=== PATIENT | male | born 1945 | race Caucasian/White ===

== ENCOUNTER 2017-11-05 14:52 | Outpatient (CLI) | payer MEDICARE ==
--- NOTE | 2017-11-05 15:34 | RAD ---
RIGHT KNEE TWO VIEWS: History: Right knee pain. FINDINGS: There are degenerative changes noted with spurring from femoral condyles, tibial condyles, tibial spi ne, and patella. There is irregularity at the anterior tibial tubercle. Small joint effusion cannot be excluded. There is fullness in the suprapatellar region. No definite fracture. IMPRESSION: Moderate degenerative changes as described. Suggestion of small joint effusion. POS: [facility]
--- NOTE | 2017-11-05 15:40 | RAD ---
LUMBAR SPINE THREE VIEWS: Lateral views are obtained in neutral, flexion, and extension positions. History: Low back pain. Spondylolisthesis of lumbar region. FINDINGS: There is a mild anterolisthesis at L4-5. Moderate hypertrophic degenerative spurring is seen at all l evels with anterior bridging osteophytes. Loss of disc space at L4-5 and L5-S1. Prominent facet hyper trophy. No definite evidence of spondylolysis. IMPRESSION: Moderate degenerative changes with mild anterolisthesis of L4-5. POS: [facility]
--- NOTE | 2017-11-05 16:20 | MRI ---
MRI LUMBAR SPINE: TECHNIQUE: Multiplanar, multisequential imaging of the lumbar spine obtained. INDICATION: Spondylolisthesis lumbar. Low back pain. COMPARISON: Correlation is made to plain films of 11/05/17. FINDINGS: Lumbar vertebrae maintain normal height and alignment. Degenerative osteophytes are seen. Mild loss of disk space at L5-S1. Minimal anterolisthesis of L4-5. At L1-2, mild disk bulge flattens the thecal sac. No central canal stenosis. At L2-3, no significant disk bulge. Facet hypertrophy. No central canal or foraminal stenosis. At L3-4, mild disk bulge flattens the thecal sac. Facet hypertrophy. Mild central canal stenosis. At L4-5, mild anterolisthesis. Associated diffuse disk bulge. Facet hypertrophy is prominent. Ther e is especially pronounced hypertrophy at the left facet which compresses the thecal sac. This resul ts in moderate to severe central canal stenosis. Left foraminal stenosis due to this hypertrophic ch cata. At L5-S1: Disk bulge with asymmetric protrusion to the left. This flattens the anterior thecal sac and appears to displace the traversing left S1 nerve root. It may contract the traversing right S1 n erve root as well. Left foraminal encroachment. Mild central canal stenosis. IMPRESSION: 1. Moderate to severe central canal stenosis at L4-5 as described above. 2. Asymmetric protrusion to the left at L5-S1 with disk-osteophyte complex extending into the left f oramina and also extending laterally on the left. POS: [facility]
== END 2017-11-05 14:53 | disposition home or self-care (01) ==
LOC: TBSIIMAG 14:52
PROVIDERS: ATTEND Specialist
DX: M47.896 Other spondylosis, lumbar region (principal); M43.16 Spondylolisthesis, lumbar region; M99.83 Other biomechanical lesions of lumbar region; M48.061 Spinal stenosis, lumbar region without neurogenic claudication; M51.27 Other intervertebral disc displacement, lumbosacral region; M48.07 Spinal stenosis, lumbosacral region; M25.561 Pain in right knee
CPT/HCPCS: 72100; 72148

== ENCOUNTER 2018-01-05 09:38 | Outpatient (CLI) | payer MEDICARE ==
--- NOTE | 2018-01-05 11:49 | RAD ---
LEFT HIP TWO VIEW: History: Bilateral primary osteoarthritis. Comparison: None. FINDINGS: Moderate narrowing of the left hip. Mild acetabular osteophyte formation. There are rings of osteophy jin at the left femoral head/neck junction. Vascular calcifications. IMPRESSION: Moderate degenerative disease. POS: [facility]
--- NOTE | 2018-01-05 11:52 | RAD ---
RIGHT HIP TWO VIEWS: History: Bilateral primary osteoarthritis of the hips. Comparison: None. FINDINGS: No acute fracture or malalignment. Moderate degenerative disease of the right hip with an osseous bum p at the femoral head/neck junction. Osteophytes, joint space narrowing. IMPRESSION: Moderate degenerative changes right hip. POS: [facility]
--- NOTE | 2018-01-05 11:53 | RAD ---
PELVIS ONE VIEW: History: Bilateral primary osteoarthritis of the hips. Comparison: Same day. FINDINGS: There is moderate bilateral hip osteoarthrosis. Femoral head/neck osseous bumps are present. Subchond ral cysts of the acetabulum are present bilaterally. No acute osseous abnormality. IMPRESSION: Moderate degenerative changes of the hips. POS: [facility]
== END 2018-01-05 09:39 | disposition home or self-care (01) ==
LOC: RAD 09:38
PROVIDERS: ATTEND Nurse Practitioner Family
DX: M16.0 Bilateral primary osteoarthritis of hip (principal)
CPT/HCPCS: 72170

== ENCOUNTER 2018-04-11 07:52 | Emergency (ER) | payer MEDICARE ==
[2018-04-11] MEDS ORDERED: Ketorolac Tromethamine 30 MG/ML VIAL ONE (08:55)
[2018-04-11] MEDS ORDERED: Dexamethasone 10 MG/ML VIAL ONE (08:56)
[2018-04-11] MEDS ORDERED: Morphine 4 MG/ML VIAL ONE ×2 (08:56→11:05)
[2018-04-11] MEDS ORDERED: Ondansetron PF 4 MG/2 ML Vial ONE (11:21)
[2018-04-11 11:48] LABS: #Monocytes 0.4 thou/uL (0.11-0.59); #Neutrophils 6.3 thou/uL (1.40-6.50); %Basophils 0.1 % (0.0-1.0); %Eosinophils 0.6 % (0.0-10.0); %Lymphocytes 13.3 % (21.0-51.0); %Monocytes 4.8 % (0.0-10.0); %Neutrophils 81.2 % (42.0-75.0); Hemoglobin 15.2 g/dL (14.0-18.0); Mean Corpuscular HGB CONC 32.8 g/dL (32.0-36.0); Mean Corpuscular Hemoglobin 31.1 pg (27.0-31.0); Mean Corpuscular Volume 94.7 fL (78.0-98.0); Mean Platelet Volume 7.3 fL (7.4-10.4); Platelet Count 254 thou/uL (130-400); RBC Distribution Width 11.2 % (11.5-14.5); White Blood Cell (WBC) Count 7.8 thou/uL (4.8-10.8)
[2018-04-11 12:00] LABS: ALT (SGPT) 22 U/L (8-55); AST (SGOT) 23 U/L (5-34); Albumin 4.5 g/dL (3.4-4.8); Alkaline Phosphatase 60 U/L (40-150); Anion Gap 16 mmol/L (10-20); BUN (Urea Nitrogen) 24 mg/dL (8.4-25.7); Bilirubin, Total 1.5 mg/dL (0.2-1.2); Calc. Creatinine Clearance 0 mL/min (70-130); Calcium 10.5 mg/dL (7.8-10.44); Carbon Dioxide 27 mmol/L (23-31); Chloride 98 mmol/L (98-107); Estimated GFR-MDRD 45; Glucose 133 mg/dL (83-110); Potassium 3.9 mmol/L (3.5-5.1); Protein, Total 8.5 g/dL (5.8-8.1); Sodium 137 mmol/L (136-145)
[2018-04-11 14:13] LABS: Bilirubin Negative (Negative); Blood, Urine Trace (Negative); Clarity CLEAR (Clear); Glucose, Urine (Dipstick) Negative (Negative); Leukocyte Negative (Negative); Nitrite Negative (Negative); Protein, Urine (Dipstick) Trace mg/dL (Neg-Trace); Specific Gravity, Urine 1.013 (1.002-1.036); Urobilinogen 0.2 mg/dL (0.2-1.0)
--- NOTE | 2018-04-11 14:13 | MRI ---
MRI LUMBAR SPINE WITHOUT CONTRAST: HISTORY: Lower back pain and left lower extremity pain. COMPARISON: 11/05/2017. FINDINGS: The vertebral body heights and marrow signal are maintained. Conus medullaris ends at L1 level. The re is minimal anterolisthesis of L4 over L5 vertebral bodies. There is a diffuse disk bulge and bilateral facet hypertrophic changes (left greater than right) at L4-5 level resulting in moderate to severe central canal stenosis and mild left neural foraminal sten osis. These changes are stable. At L5-S1 level, there is a broad-based disk bulge with asymmetric prominence on the left. Mild left neural foraminal stenosis is present. There is a focal left paracentral disk protrusion at L5-S1 lev el with associated extrusion behind the body of L5. This also demonstrates impingement of the anteri or thecal sac and the lateral recess with probable abutment of the left S1 nerve root. There is mild central canal stenosis at L5-S1 level. FINDINGS: 1. Left paracentral disk protrusion at L5-S1 level with superior protrusion behind the L5 vertebral body with probable impingement of the left S1 nerve root in the lateral recess. 2. Stable moderate to severe central canal stenosis at L4-L5 level. 3. Asymmetric left disk bulge at L5-S1 with mild left neural foraminal stenosis. POS: [facility]
[2018-04-11 14:16] LABS: Bacteria/HPF None Seen HPF (None Seen); Hyaline Casts/LPF 4-6 HYALINE CAST LPF (0-3 Hyaline); Pathc Cast-AUWi Flag 0.87 (0-2.49); RBC/HPF 0-3 HPF (0-3); Squamous Epithelial 0-3 HPF (0-3); WBC/HPF 0-3 HPF (0-3)
== END 2018-04-11 15:05 | disposition home or self-care (01) ==
LOC: ERS 07:52
DX: M54.10 Radiculopathy, site unspecified (principal); R33.9 Retention of urine, unspecified; M54.5 Low back pain; E78.5 Hyperlipidemia, unspecified; E11.9 Type 2 diabetes mellitus without complications; I10 Essential (primary) hypertension; Z79.899 Other long term (current) drug therapy
CPT/HCPCS: 36415; 51703; 51798; 72148; 80053; 81001; 85025; 96372; 96374; 96375; J1100; J1885; J2270; J2405

== ENCOUNTER 2018-04-15 07:01 | Emergency (ER) | payer MEDICARE ==
[2018-04-15 07:46] LABS: Bilirubin Negative (Negative); Blood, Urine Small (Negative); Clarity CLEAR (Clear); Glucose, Urine (Dipstick) Negative (Negative); Leukocyte Large (Negative); Nitrite Negative (Negative); Protein, Urine (Dipstick) Negative (Neg-Trace); Specific Gravity, Urine 1.013 (1.002-1.036); Urobilinogen 0.2 mg/dL (0.2-1.0)
[2018-04-15 07:48] LABS: Bacteria/HPF None Seen HPF (None Seen); Hyaline Casts/LPF 4-6 HYALINE CAST LPF (0-3 Hyaline); Pathc Cast-AUWi Flag 0.58 (0-2.49); Squamous Epithelial 0-3 HPF (0-3)
== END 2018-04-15 09:44 | disposition home or self-care (01) ==
LOC: ERS 07:01
DX: N39.0 Urinary tract infection, site not specified (principal); E11.9 Type 2 diabetes mellitus without complications; E78.5 Hyperlipidemia, unspecified; I10 Essential (primary) hypertension; Z79.4 Long term (current) use of insulin; Z79.899 Other long term (current) drug therapy
CPT/HCPCS: 81003; 81015; 87086; 99283

== ENCOUNTER 2018-06-19 09:21 | Outpatient (CLI) | payer MEDICARE ==
--- NOTE | 2018-06-19 10:49 | RAD ---
LUMBAR SPINE RADIOGRAPHS THREE VIEWS: Date: 06-19-18 Provided Clinical History: Intervertebral disc disorder with radiculopathy. FINDINGS: Comparison 11-05-17. Five non-rib bearing lumbar type vertebral bodies are present. Stable slight anterolisthesis of L4 on L5. No evidence for abnormal translational motion with flexion and extension. Multilevel degenerativ e changes are re-demonstrated. Vascular calcifications are seen. IMPRESSION: As above. POS: [facility]
== END 2018-06-19 09:22 | disposition home or self-care (01) ==
LOC: RAD 09:21
PROVIDERS: ATTEND Neurological Surgery
DX: M47.26 Other spondylosis with radiculopathy, lumbar region (principal); M43.16 Spondylolisthesis, lumbar region; I70.90 Unspecified atherosclerosis
CPT/HCPCS: 72100

== ENCOUNTER 2018-07-27 00:12 | Outpatient (CLI) | payer MEDICARE ==
[2018-07-27 10:16] LABS: #Eosinphils 0.3 thou/uL (0.0-0.7); #Lymphocytes 2.3 thou/uL (1.20-3.40); #Monocytes 0.8 thou/uL (0.11-0.59); #Neutrophils 2.3 thou/uL (1.40-6.50); %Basophils 0.7 % (0.0-1.0); %Lymphocytes 40.1 % (21.0-51.0); %Monocytes 13.5 % (0.0-10.0); %Neutrophils 39.8 % (42.0-75.0); Hemoglobin 14.2 g/dL (14.0-18.0); Mean Corpuscular HGB CONC 33.9 g/dL (32.0-36.0); Mean Corpuscular Hemoglobin 31.6 pg (27.0-31.0); Mean Corpuscular Volume 93.3 fL (78.0-98.0); Mean Platelet Volume 7.7 fL (7.4-10.4); Platelet Count 264 thou/uL (130-400); RBC Distribution Width 11.8 % (11.5-14.5); Red Blood Cell (RBC) Count 4.51 mill/uL (4.70-6.10); White Blood Cell (WBC) Count 5.8 thou/uL (4.8-10.8)
[2018-07-27 10:27] LABS: Prothrombin Time 13.3 SEC (12.0-14.7)
[2018-07-27 10:37] LABS: ALT (SGPT) 23 U/L (8-55); AST (SGOT) 25 U/L (5-34); Albumin 4.2 g/dL (3.4-4.8); Alkaline Phosphatase 63 U/L (40-150); Anion Gap 15 mmol/L (10-20); BUN (Urea Nitrogen) 20 mg/dL (8.4-25.7); Bilirubin, Total 1.5 mg/dL (0.2-1.2); Calc. Creatinine Clearance 0 mL/min (70-130); Carbon Dioxide 24 mmol/L (23-31); Cardiac Risk 3.8 (Less than 4.5); Chloride 104 mmol/L (98-107); Cholesterol 150 mg/dl (< 200 Desired); Estimated GFR-MDRD 51; Globulin 3.5 g/dL (2.4-3.5); Glucose 125 mg/dL (83-110); HDL Cholesterol 40 mg/dL (>60 Neg Risk); LDL Cholesterol, Calculated 62 mg/dL; Potassium 4.1 mmol/L (3.5-5.1); Protein, Total 7.7 g/dL (5.8-8.1); Sodium 139 mmol/L (136-145); Triglycerides 239 mg/dL (Less than 150)
== END 2018-07-27 00:13 | disposition home or self-care (01) ==
LOC: LABBT 00:12
PROVIDERS: ATTEND Internal Medicine Cardiovascular Disease
DX: Z01.812 Encounter for preprocedural laboratory examination (principal); R94.39 Abnormal result of other cardiovascular function study
CPT/HCPCS: 80053; 80061; 85025; 85610; 85730

== ENCOUNTER 2018-07-30 06:54 | Day surgery (SDC) | payer MEDICARE ==
[2018-07-27 08:35] VITALS: BMI 29.2
[2018-07-30] MEDS ORDERED: Fentanyl 100 MCG/2 ML VIAL ONE (08:54)
[2018-07-30] MEDS ORDERED: Nitroglycerin 100MG/250ML BOT 250 ML ONE (08:54)
[2018-07-30] MEDS ORDERED: Verapamil 5 MG/2 ML VIAL ONE (08:54)
[2018-07-30] MEDS ORDERED: Heparin 10,000 UNITS/1 ML VIAL ONE (08:54)
[2018-07-30] MEDS ORDERED: Midazolam HCl 2 mg/2 ml Vial ONE (08:54)
[2018-07-30] MEDS ORDERED: Lidocaine 1% (PF) 30 ML VIAL ONE (09:35)
[2018-07-30] MEDS ORDERED: Iopamidol 370 76% 100 ML VIAL ONE (09:42)
== END 2018-07-30 12:21 | disposition home or self-care (01) ==
LOC: CCL 06:54
PROVIDERS: ATTEND Internal Medicine Cardiovascular Disease
PROC: 4A023N7 Measurement of Cardiac Sampling and Pressure, Left Heart, Percutaneous Approach (ICD-10-PCS; principal; 2018-07-30)
PROC: B2111ZZ Fluoroscopy of Multiple Coronary Arteries using Low Osmolar Contrast (ICD-10-PCS; 2018-07-30)
DX: I25.10 Atherosclerotic heart disease of native coronary artery without angina pectoris (principal); I44.7 Left bundle-branch block, unspecified; E78.00 Pure hypercholesterolemia, unspecified; I10 Essential (primary) hypertension; E11.9 Type 2 diabetes mellitus without complications; Z79.4 Long term (current) use of insulin; Z79.899 Other long term (current) drug therapy; Z88.5 Allergy status to narcotic agent
CPT/HCPCS: 93458; 99152; 99153; C1769; J1644; J2001; J2250; J3010; Q9967

== ENCOUNTER 2018-08-25 05:02 | Outpatient (CLI) | payer MEDICARE ==
[2018-08-25 09:56] LABS: Hemoglobin 14.3 g/dL (14.0-18.0); Mean Corpuscular HGB CONC 33.8 g/dL (32.0-36.0); Mean Corpuscular Hemoglobin 31.7 pg (27.0-31.0); Mean Corpuscular Volume 93.7 fL (78.0-98.0); Mean Platelet Volume 7.8 fL (7.4-10.4); Platelet Count 237 thou/uL (130-400); RBC Distribution Width 11.7 % (11.5-14.5); White Blood Cell (WBC) Count 5.8 thou/uL (4.8-10.8)
[2018-08-25 10:12] LABS: Prothrombin Time 13.5 SEC (12.0-14.7)
[2018-08-25 10:19] LABS: Anion Gap 17 mmol/L (10-20); BUN (Urea Nitrogen) 31 mg/dL (8.4-25.7); Calc. Creatinine Clearance 0 mL/min (70-130); Calcium 10.1 mg/dL (7.8-10.44); Carbon Dioxide 24 mmol/L (23-31); Chloride 102 mmol/L (98-107); Estimated GFR-MDRD 48; Glucose 201 mg/dL (83-110); Potassium 4.2 mmol/L (3.5-5.1); Sodium 139 mmol/L (136-145)
== END 2018-08-25 05:03 | disposition home or self-care (01) ==
LOC: LABBT 05:02
PROVIDERS: ATTEND Neurological Surgery
DX: Z01.818 Encounter for other preprocedural examination (principal); M51.26 Other intervertebral disc displacement, lumbar region; M48.061 Spinal stenosis, lumbar region without neurogenic claudication; M71.30 Other bursal cyst, unspecified site
CPT/HCPCS: 80048; 85027; 85610; 85730; 93005; 93010

== ENCOUNTER 2018-08-28 08:10 | Observation (INO) | payer MEDICARE ==
[2018-08-25 08:55] VITALS: BMI 29.2
--- NOTE | 2018-08-28 06:16 | HP ---
HISTORY OF PRESENT ILLNESS: This is a 72-year-old male who reports to our office for continuation of left lower extremity pain and weakness. The patient was last seen in our office in September. He was referred to Pain Management for injections and physical therapy. The patient has been seen in the ED in the beginning of April of this past year for back pain and urinary retention. At that time, it was discussed that the urinary retention was most likely unrelated to his back pain, and has since seen Urology help there. The patient currently complains of left lower extremity lateral pain and numbness into the lateral foot and top of his foot and even into the great toe. The patient states that prior to steroid treatment that he was given in the hospital, his pain was up in his back and the back of the left leg as well. The patient states that he did a round of physical therapy and traction, which helped some, but did not give him lasting relief. He has had one injection so far and the second one is scheduled for next week, but he does not take much pain medication. REVIEW OF SYSTEMS: A 10-point review of systems has been negative, other than stated in the above HPI. PAST MEDICAL HISTORY: Diabetes, colon cancer, and hypertension. ALLERGIES: HAY FEVER; TYLENOL WITH CODEINE, VOMITING. MEDICATIONS: 1. Lisinopril. 2. Amlodipine. 3. Lantus. 4. Loratadine. 5. Hydrochlorothiazide. 6. Glucosamine. 7. Vitamin D. 8. Walton-3. 9. Pravastatin. 10. Irbesartan. 11. Gabapentin. 12. Tizanidine. 13. Tramadol. PAST SURGICAL HISTORY: Colon polyp removal and cataract. FAMILY HISTORY: Father is , diagnosed with diabetes and stroke. Mother is , diagnosed with hypertension and cancer. Siblings are alive. Son is alive. Daughter is alive. SOCIAL HISTORY: The patient is a nonsmoker. Denies other drug use. Drinks alcohol on occasion and occasionally smokes a pipe tobacco. PHYSICAL EXAMINATION: CONSTITUTIONAL: Well appearing, well-nourished, alert. NEUROLOGIC: Mental status, oriented to time, place, and person. Normal attention span and concentration. Speech is spontaneous and fluent. Comprehension is intact. Content appropriate. Normal fund of knowledge. Cranial nerves; pupils are equal, round, and reactive to light. Extraocular movements are intact. Hearing is intact. Motor strength normal in lower extremities. Muscle tone and bulk normal in lower extremities. 5/5 bilateral strength in IP, KE, KF, DF, PF, EHL. 4/5 left toe flexion. L5-S1 radiculopathy on the left. Negative single leg raise. Rotation of bilateral hips normal. Tender to palpation at L5, left greater than right SI joint. Deep tendon reflexes, diminished reflexes. Sensory to light touch intact. Gait and station; sit to stand slow, normal gait. RESPIRATIONS: Normal work of breathing on room air. IMAGING: MRI of lumbar spine shows herniated nucleus pulposusand synovial cyst that are causing left foraminal narrowing at L4-L5 and herniated nucleus pulposus causing foraminal narrowing at L5-S1 on the left. ASSESSMENT AND PLAN: Lumbar foraminal stenosis with lumbar back pain and left radiculopathy. Dr. Pagan has offered L4-L5, L5-S1 microdiscectomy with synovial cyst removal on the left. Job ID: [id number]
[2018-08-28] MEDS ORDERED: Sodium Chloride 0.9% 0 ML ONE (10:17)
[2018-08-28] MEDS ORDERED: Bupivacaine HCl 0.5%/Epinephrine 1:200,000/PF 30 ml Vial ONE (10:17)
[2018-08-28] MEDS ORDERED: Thrombin 5000 UNITS/5 ML VIAL ONE (10:17)
[2018-08-28] MEDS ORDERED: Sodium Chloride 0.9% 10 ML ONE (10:30)
[2018-08-28] MEDS ORDERED: Fentanyl 100 MCG/2 ML VIAL ONE (10:40)
[2018-08-28] MEDS ORDERED: ePHEDrine 50 MG/ML VIAL ONE (12:16)
[2018-08-28] MEDS ORDERED: Ondansetron PF 4 MG/2 ML Vial ONE ×2 (12:16→15:32)
[2018-08-28] MEDS ORDERED: Rocuronium Bromide 10 MG/ML (10ML VIAL) ONE (12:16)
[2018-08-28] MEDS ORDERED: PHENYLEPHRINE-NS 100 MCG/ML 10 ML SYRINGE ONE (12:16)
[2018-08-28] MEDS ORDERED: Lidocaine 1% PF 5 ML VIAL ONE (12:16)
[2018-08-28] MEDS ORDERED: PROPOFOL 200 MG/20 ML VIAL ONE (12:16)
[2018-08-28] MEDS ORDERED: Glycopyrrolate 0.2 MG/ML 5 ML SYRINGE ONE (12:16)
--- NOTE | 2018-08-28 13:44 | OP ---
DATE OF PROCEDURE: 08/28/2018 SUPERINTENDENT OVERHEAD DISTRIBUTION: Jewels Chowdhury PA-C. PREOPERATIVE INDICATION: Treat pain and prevent neurological deterioration. PREOPERATIVE DIAGNOSES: Left lateral recess stenosis with radiculopathy at L4-L5 and L5-S1 due to intervertebral disk herniation, facet arthropathy, and synovial cyst. POSTOPERATIVE DIAGNOSES: Left lateral recess stenosis with radiculopathy at L4-L5 and L5-S1 due to intervertebral disk herniation, facet arthropathy, and synovial cyst. OPERATIVE PROCEDURE: Left-sided hemilaminectomy, medial facetectomy, foraminotomy, removal of synovial cyst at L4-L5, left-sided L4, L5, and S1 hemilaminectomy, medial facetectomy, foraminotomy and microdiskectomy, operating microscope. PREOPERATIVE MEDICATION: Ancef 2 g IV. DRAIN NUMBER: Zero. DRAIN TYPE: None. DESCRIPTION OF PROCEDURE: The patient was brought to the operating room. General endotracheal anesthesia was induced. The patient was positioned prone on the operating table with the chest and hips supported by gel-filled chest rolls. A lateral fluoro radiograph was used to plan our incision. The lumbar skin was sterilely prepped and draped. We opened our incision with a 10 blade knife and controlled bleeding with bipolar and monopolar cautery. We used monopolar cautery to dissect through subcutaneous tissues to the thoracodorsal fascia. We incised the fascia left to the midline and reflected the paraspinal muscles off the spinous process and lamina of L4, L5 and S1. We placed a marker at the L5-S1 facet and took a lateral fluoro radiograph to confirm the level upon which we were operating. We then placed a self-retaining retractor at L5-S1, performed a hemilaminectomy with Kerrison rongeurs. The operative microscope was brought into the field. Under microscopic magnification and using microsurgical techniques, we removed the yellow ligament in a piecemeal fashion. I performed more of a medial facetectomy until we could dissect lateral to the S1 nerve root. We retracted it medially and carefully over a calcified disk protrusion. We found some loose disk under the nerve root and then decided we could no longer retract it medially safely. We dissected carefully in the axilla of the nerve root by retracting the common thecal sac. We encountered sharp corners of intervertebral disk protrusion that had calcified over the years and we reduced this with curettes and removed in a piecemeal fashion. We then retracted the S1 nerve root more medially and we cleaned out the lateral recess by flattening out the disk protrusion. We reached into the disk space and found no loose fragments of disk. We irrigated copiously with bacitracin irrigation and controlled ventral epidural bleeding with gentle bipolar cautery and moved our attention to L4-L5. Here we placed self-retaining retractors while we performed a hemilaminectomy and medial facetectomy with Kerrison rongeurs. We removed the yellow ligament in a piecemeal fashion. The yellow ligament at its ventral surface had synovial cyst contained within it. We removed the medial portion of the facet joint same cyst had emanated, the yellow ligament and the cyst until we identified the L5 nerve root. There was a loose fragment of bone as well of the ventral portion of the facet joint. This could have been another portion of synovial cyst that had calcified over the years, but it looked more like a bone spur that had fractured off the facet joint itself. This was large and loose and we removed it freeing the lateral recess completely. We then could visualize the common thecal sac, lateral recess, traversing L5 nerve root. We passed a Joel ball probe through the lateral recess and out the foramen without impingement. Here, we irrigated copiously with bacitracin irrigation once again, and we waxed the bone edges. We removed the operative microscope from the field. We closed the wound in anatomical layers and we applied a sterile dressing. This was a clean case, no contamination. Job ID: [id number]
[2018-08-28] MEDS ORDERED: Tamsulosin HCl 0.4 MG CAP ONE (19:08)
[2018-08-28] MEDS ORDERED: INSULIN GLARGINE SC SCH (21:00)
[2018-08-28] MEDS ORDERED: Atorvastatin Calcium 20 MG TAB PO SCH (21:00)
[2018-08-28] MEDS ORDERED: Acetaminophen 650 MG Suppository PR PRN (21:20)
[2018-08-28] MEDS ORDERED: Promethazine HCl 25 MG/ML VIAL IM PRN (21:20)
[2018-08-28] MEDS ORDERED: Mag-Al 1200 mg/1200 mg/30 ML UDCUP PO PRN (21:20)
[2018-08-28] MEDS ORDERED: Ondansetron PF 4 MG/2 ML Vial IVP PRN (21:20)
[2018-08-28] MEDS ORDERED: diphenhydrAMINE 50 MG/ML VIAL IVP PRN (21:20)
[2018-08-28] MEDS ORDERED: tiZANidine HCl 4 MG TAB PO PRN (21:20)
[2018-08-28] MEDS ORDERED: Promethazine 25 MG TAB PO PRN (21:20)
[2018-08-28] MEDS ORDERED: Morphine 4 MG/ML VIAL SLOW IVP PRN (21:20)
[2018-08-28] MEDS ORDERED: diphenhydrAMINE 25 MG CAP PO PRN (21:20)
[2018-08-28] MEDS ORDERED: Acetaminophen 325 MG TAB PO PRN (21:20)
[2018-08-28] MEDS ORDERED: Bisacodyl 10 MG SUPP PR PRN (21:20)
[2018-08-28] MEDS ORDERED: traMADol HCl 50 MG TAB PO PRN (21:20)
[2018-08-28] MEDS ORDERED: Milk Of Magnesia 30 ML UDCUP PO PRN (21:20)
[2018-08-28] MEDS: traMADol HCl 50 MG TAB PO PRN (23:12)
[2018-08-29] MEDS: traMADol HCl 50 MG TAB PO PRN (04:57)
[2018-08-29] MEDS ORDERED: Tamsulosin HCl 0.4 MG CAP PO SCH (06:00)
[2018-08-29] MEDS ORDERED: Lisinopril 20 MG TAB PO SCH (09:00)
[2018-08-29] MEDS ORDERED: LORATADINE PO SCH (09:00)
[2018-08-29] MEDS ORDERED: Amlodipine 10 MG TAB PO SCH ×2 (09:00)
[2018-08-29] MEDS ORDERED: Non-Formulary Item 1 EACH (Hydrochlorothiazide [Hydrochlorothiazide] 1 TAB) PO SCH (09:00)
[2018-08-29] MEDS ORDERED: Hydrochlorothiazide 25 MG TAB PO SCH ×2 (09:00)
[2018-08-29] MEDS ORDERED: Non-Formulary Item 1 EACH (Glucosam/Chondr-Msm1/D3/C/Mang [Glucosamine Chondroitin Comple PO SCH (09:00)
[2018-08-29] MEDS ORDERED: Metamucil PACK PO SCH (09:00)
[2018-08-29] MEDS ORDERED: INSULIN GLARGINE HUM REC ANLOG 45 UNIT SQ SCH (09:00)
[2018-08-29] MEDS ORDERED: INSULIN GLARGINE SC SCH (09:00)
[2018-08-29] MEDS ORDERED: Non-Formulary Item 1 EACH (Irbesartan/Hydrochlorothiazide [Irbesartan-Hctz 300-12.5 Mg Tb PO SCH (09:00)
[2018-08-29] MEDS ORDERED: Loratadine 10 MG TAB PO SCH (09:00)
[2018-08-29 12:15] VITALS: BP 124/75; TEMP 98.3
--- NOTE | 2018-08-29 12:18 | PRG ---
DATE OF SERVICE: 08/29/2018 I saw Mr. Roblero in his hospital room this morning. He stayed for urinary retention yesterday and he still has had that this morning. He had incomplete emptying of the bladder and residual of over 600. In and out catheterization was done. Mr. Roblero is very pleased with the results of the operation, but frustrated with his bladder. This has happened to him before. He has a urologist. Our plan is to have Mr. Roblero ambulate and take lots of fluids and try to get his bladder working again on his own. If he does not, we will call his urologist's office and get an appointment, date, and time. If not, we will have a consult done in the hospital. Decisions can be made through Urology with regard to leaving the indwelling catheter or I and O catheterization at home. Job ID: [id number]
--- NOTE | 2018-08-29 19:40 | CON ---
DATE OF CONSULTATION: 08/29/2018 REASON FOR CONSULTATION: Urinary retention. HISTORY OF PRESENT ILLNESS: Mr. Roblero is a 72-year-old gentleman, who has a prior history of urinary retention. He underwent Patel catheterization for retention several months ago. He was catheter dependent for approximately four days and the catheter was removed, and he has been voiding well since then. He is now status post lumbar laminectomy and since surgery, he has not been able to void. He has had several catheterized residuals, all of them greater than 400 mL. Prior urologic history is negative other than that mentioned above. He did take tamsulosin temporarily during his prior episode of retention in April 2018. PAST MEDICAL HISTORY: Hypertension, diabetes mellitus, and colon cancer. PAST SURGICAL HISTORY: Lumbar laminectomy, colon polyp removal, and cataract surgery. ALLERGIES: TYLENOL WITH CODEINE, CAUSES VOMITING. CHRONIC MEDICATIONS: 1. Lisinopril. 2. Amlodipine. 3. Lantus. 4. Loratadine. 5. Hydrochlorothiazide. 6. Glucosamine. 7. Vitamin D. 8. Pravastatin. 9. Gabapentin. 10. Tramadol. FAMILY HISTORY: Significant for stroke and diabetes mellitus. SOCIAL HISTORY: He is a nonsmoker. Denies excessive alcohol use. PHYSICAL EXAMINATION: GENERAL: He is awake and alert. He is in no distress. HEENT: Normocephalic and atraumatic. NECK: Supple. No masses. CHEST: Clear to auscultation. ABDOMEN: Soft, nontender. No palpable masses. Liver and spleen not palpable. No abdominal tenderness noted. : Penis is circumcised. Urethral meatus appears normal. Digital rectal exam not performed at this time. A 16-Z[place] Patel catheter placed. Clear yellow urine obtained. IMPRESSION: Postoperative urinary retention in a patient who has had a prior episode of urinary retention in April 2018. A Patel catheter has been placed. He will follow up with his urologist, Dr. Fox, for further management. PLAN: Discharge home. Okay from urology standpoint to resume Flomax 0.4 mg p.o. q.h.s. Followup with Dr. Fox will be arranged by the patient. Job ID: [id number] MTDD
[2018-08-29] MEDS ORDERED: [UNRECOGNIZED DRUG - OTHER] SQ SCH (21:00)
[2018-08-29] MEDS ORDERED: Non-Formulary Item 1 EACH (Pravastatin Sodium [Pravastatin Sodium] 1 TAB) PO SCH (21:00)
[2018-08-29] MEDS ORDERED: INSULIN GLARGINE HUM REC ANLOG SQ SCH (21:00)
== END 2018-08-29 16:14 | disposition home or self-care (01) ==
LOC: SDC 08:10 → SJJU 20:27
PROVIDERS: ADMIT Neurological Surgery; ATTEND Neurological Surgery
PROC: 01NB0ZZ Release Lumbar Nerve, Open Approach (ICD-10-PCS; principal; 2018-08-28)
DX: M48.07 Spinal stenosis, lumbosacral region (principal); M51.17 Intervertebral disc disorders with radiculopathy, lumbosacral region; M46.97 Unspecified inflammatory spondylopathy, lumbosacral region; M71.38 Other bursal cyst, other site; I10 Essential (primary) hypertension; E11.9 Type 2 diabetes mellitus without complications; F17.290 Nicotine dependence, other tobacco product, uncomplicated; N99.89 Other postprocedural complications and disorders of genitourinary system; R33.9 Retention of urine, unspecified; Z85.038 Personal history of other malignant neoplasm of large intestine; Z86.010 Personal history of colon polyps; Z88.5 Allergy status to narcotic agent; Z98.49 Cataract extraction status, unspecified eye; Z79.4 Long term (current) use of insulin; Z79.899 Other long term (current) drug therapy; Z98.890 Other specified postprocedural states
CPT/HCPCS: 63047; 63048; 63267; 76000; 82962 ×2; G0378; 36416; 51798; J0670; J1825; J2001; J2405; J2704; J3010; J3370; J3490

== ENCOUNTER 2019-07-05 10:32 | Outpatient (CLI) | payer MEDICARE ==
--- NOTE | 2019-07-05 11:11 | RAD ---
Lumbar spine: 4 views INDICATIONS:Lumbar radiculopathy. COMPARISON:06/19/2018 FINDINGS: Vertebral bodies maintain height. Prominent anterior osteophytes with anterior and lateral bridging o steophytes seen. Slight anterolisthesis at L4-5 Loss of disc space at L4-5 and L5-S1. Prominent facet hypertrophy. No significant change in alignment with flexion or extension. IMPRESSION: Moderately severe hypertrophic degenerative changes of lumbar spine as described. Findings appear sta ble compared to prior study.
== END 2019-07-05 10:33 | disposition home or self-care (01) ==
LOC: BICRAD 10:32
PROVIDERS: ATTEND Neurological Surgery
DX: M47.26 Other spondylosis with radiculopathy, lumbar region (principal)
CPT/HCPCS: 72110

== ENCOUNTER 2019-09-13 12:40 | Emergency (ER) | payer MEDICARE ==
[2019-09-13 13:33] LABS: #Eosinphils 0.2 thou/uL (0.0-0.7); #Lymphocytes 1.4 thou/uL (1.20-3.40); #Neutrophils 7.5 thou/uL (1.40-6.50); %Basophils 0.2 % (0.0-1.0); %Eosinophils 2.1 % (0.0-10.0); %Lymphocytes 14.1 % (21.0-51.0); %Monocytes 9.6 % (0.0-10.0); Hemoglobin 15.6 g/dL (14.0-18.0); Mean Corpuscular HGB CONC 34.5 g/dL (32.0-36.0); Mean Corpuscular Hemoglobin 31.6 pg (27.0-31.0); Mean Corpuscular Volume 91.6 fL (78.0-98.0); Platelet Count 206 thou/uL (130-400); RBC Distribution Width 11.7 % (11.5-14.5); Red Blood Cell (RBC) Count 4.95 mill/uL (4.70-6.10); White Blood Cell (WBC) Count 10.1 thou/uL (4.8-10.8)
[2019-09-13 13:56] LABS: ALT (SGPT) 23 U/L (8-55); AST (SGOT) 23 U/L (5-34); Albumin 4.2 g/dL (3.4-4.8); Alkaline Phosphatase 73 U/L (40-110); Anion Gap 13 mmol/L (10-20); BUN (Urea Nitrogen) 21 mg/dL (8.4-25.7); Bilirubin, Total 1.6 mg/dL (0.2-1.2); Calc. Creatinine Clearance 0 mL/min (70-130); Calcium 9.6 mg/dL (7.8-10.44); Carbon Dioxide 28 mmol/L (23-31); Chloride 100 mmol/L (98-107); Estimated GFR-MDRD 54; Globulin 3.8 g/dL (2.4-3.5); Glucose 138 mg/dL (83-110); Potassium 3.2 mmol/L (3.5-5.1); Sodium 138 mmol/L (136-145)
== END 2019-09-13 14:53 | disposition home or self-care (01) ==
LOC: ERS 12:40
DX: E11.649 Type 2 diabetes mellitus with hypoglycemia without coma (principal); E78.5 Hyperlipidemia, unspecified; I10 Essential (primary) hypertension; Z79.899 Other long term (current) drug therapy; Z79.4 Long term (current) use of insulin
CPT/HCPCS: 36415; 36416; 80053; 85025; 99285

== ENCOUNTER 2019-12-16 08:11 | Outpatient (CLI) | payer MEDICARE ==
--- NOTE | 2019-12-16 10:08 | MRI ---
MRI LUMBAR SPINE WITH AND WITHOUT CONTRAST: DATE: 12/16/2019 HISTORY: 74-year-old male with lumbar spondylolisthesis, low back pain, and unsteady gait. COMPARISON: 04/11/2018 TECHNIQUE: Multiple sequences obtained in axial and sagittal planes, pre and post IV injection of gadolinium-bas ed contrast agent. FINDINGS: 5 lumbar-type vertebrae. Vertebral body heights are maintained. No major bone marrow signal abnormali ty. T12-L1:Disc space maintained. Small central and bilateral paracentral disc herniation with superior m igration a short distance, indents the ventral surface of thecal sac. No high-grade central spinal canal stenosis. No high-grade neural foraminal stenosis. L1-2:Mild disc bulge. Disc desiccation. Minimal disc space narrowing. No high-grade central spinal ca nal stenosis. No right neural foraminal stenosis. Mild-moderate left neural foraminal stenosis. No interval change. L2-3:Disc space maintained. Minimal retrolisthesis of L2 on L3. Mild disc bulge. No significant centr al or neural foraminal stenosis. No interval change. L3-4:Disc space maintained. Mild disc bulge. Superimposed small focal central disc protrusion indents ventral aspect of thecal sac. Bilateral mild to moderate facet DJD. Mild central spinal canal stenosis. No high-grade neural foraminal stenosis. No interval change. L4-5:Moderate right facet DJD. Severe left facet DJD. Bilateral facet joint effusions. Mild grade 1 a nterolisthesis of L4 on L5. Mild disc space narrowing, minimally worse than before. Mild disc bulge. Interval improvement in the previously demonstrated moderate central spinal canal stenosis due to interval left hemilaminotomy, with resection of left ligamentum flavum. Currently mild central spinal canal stenosis. Mild to moderate right lateral recess stenosis. Interval improvement in the pr eviously demonstrated high-grade left lateral recess stenosis. Now enhancing scar tissue in the left lateral recess surrounding the left L5 nerve root. Mild to moderate bilateral neural foraminal s tenosis. L5-S1:Moderate disc space narrowing. Diffuse disc bulge. New left hemilaminotomy. Interval partial re section of central and left paracentral and left lateral disc extrusion. Now, in place of the disc extrusion which was previously posteriorly displacing and compressing the left S1 nerve root at the l eft lateral recess, there is now enhancing scar tissue surrounding the left S1 nerve root, which is no longer displaced posteriorly. Furthermore, there was mild entrapment of the right S1 nerve root be tween the right paracentral component of the disc herniation and the right facet complex. That has slightly improved now. No high-grade thecal sac stenosis or high-grade central spinal canal stenosis. Mild right and mild to moderate left neural foraminal stenosis unchanged. IMPRESSION: 1) interval left hemilaminotomy at L4-5, relieving the previously demonstrated central spinal canal s tenosis. Currently there is scar tissue surrounding the left L5 nerve root at the left lateral recess. 2.) Interval left hemilaminotomy at L5-S1 with interval resection of the disc extrusion, with signifi cant improvement in the previously demonstrated compression of left S1 nerve root, and slight improvement in impingement on the right S1 nerve root. Currently there is scar tissue surrounding the left S1 nerve root at the left lateral recess. 3) mild grade 1 spondylolisthesis at L4-5 due to high-grade bilateral facet osteoarthrosis. 4.) Lumbar spondylosis with multilevel mild and moderate degenerative disc disease.
== END 2019-12-16 08:12 | disposition home or self-care (01) ==
LOC: TBSIIMAG 08:11
PROVIDERS: ATTEND Neurological Surgery
DX: M43.16 Spondylolisthesis, lumbar region (principal); M47.816 Spondylosis without myelopathy or radiculopathy, lumbar region; M51.36 Other intervertebral disc degeneration, lumbar region; L90.5 Scar conditions and fibrosis of skin; Z98.890 Other specified postprocedural states
CPT/HCPCS: 72158; 82565

== ENCOUNTER 2024-05-10 10:35 | Day surgery (SDC) | payer MEDICARE ==
[2024-05-10] MEDS ORDERED: PROPOFOL 40 ML ONE (12:25)
[2024-05-10] MEDS ORDERED: Lidocaine 2% PF 5 ML VIAL ONE (12:26)
== END 2024-05-10 13:42 | disposition home or self-care (01) ==
LOC: SDC 10:35
PROVIDERS: ATTEND Internal Medicine Gastroenterology
PROC: 0DJD8ZZ Inspection of Lower Intestinal Tract, Via Natural or Artificial Opening Endoscopic (ICD-10-PCS; principal; 2024-05-10)
DX: R14.3 Flatulence (principal); K64.8 Other hemorrhoids; I50.9 Heart failure, unspecified; E11.9 Type 2 diabetes mellitus without complications; E78.00 Pure hypercholesterolemia, unspecified; G47.30 Sleep apnea, unspecified; Z86.0100 Personal history of colon polyps, unspecified; Z95.810 Presence of automatic (implantable) cardiac defibrillator; Z87.891 Personal history of nicotine dependence; Z85.038 Personal history of other malignant neoplasm of large intestine; Z98.49 Cataract extraction status, unspecified eye; Z88.5 Allergy status to narcotic agent; Z79.82 Long term (current) use of aspirin; Z79.84 Long term (current) use of oral hypoglycemic drugs; Z79.899 Other long term (current) drug therapy
CPT/HCPCS: 45378; 82962; J2704; 36416

== ENCOUNTER 2025-01-21 08:12 | Outpatient (CLI) | payer MEDICARE ==
[2025-01-21 09:11] LABS: Estimated GFR - POC 56.0
[2025-01-21] MEDS ORDERED: Iopamidol 370 76% 100 ML VIAL ONE (12:13)
== END 2025-01-21 08:13 | disposition home or self-care (01) ==
LOC: CT 08:12
PROVIDERS: ATTEND Internal Medicine Gastroenterology
DX: E11.9 Type 2 diabetes mellitus without complications (principal); K80.20 Calculus of gallbladder without cholecystitis without obstruction; R63.4 Abnormal weight loss; R11.2 Nausea with vomiting, unspecified; R16.0 Hepatomegaly, not elsewhere classified; K76.0 Fatty (change of) liver, not elsewhere classified; K63.89 Other specified diseases of intestine; Z90.49 Acquired absence of other specified parts of digestive tract; Z86.16 Personal history of COVID-19
CPT/HCPCS: 36415; 74177; 82565 ×2; Q9967